=== PATIENT | male | born 1965 | race Caucasian/White ===

== ENCOUNTER → 2017-02-18 | Outpatient (CLI) | payer OTHER ==
[2017-02-18 08:09] LABS: MEAN CORPUSCULAR HEMOGLOBIN 30.1 pg (27.0-33.0); MEAN CORPUSCULAR HGB CONC 32.9 g/dl (32.0-36.5); MEAN CORPUSCULAR VOLUME 91.4 fl (80.0-96.0); RED CELL DISTRIBUTION WIDTH 12.4 % (11.5-14.5); WHITE BLOOD COUNT 6.6 K/mm3 (4.0-10.0)
[2017-02-18 08:30] LABS: ALBUMIN 3.6 GM/DL (3.2-5.2); ALBUMIN/GLOBULIN RATIO 1.16 (1.00-1.93); ALKALINE PHOSPHATASE 109 U/L (45-117); ALT/SGPT 29 U/L (12-78); ANION GAP 6 MEQ/L (8-16); AST/SGOT 17 U/L (15-37); BILIRUBIN,TOTAL 0.4 MG/DL (0.2-1.0); BLOOD UREA NITROGEN 18 MG/DL (7-18); CALCIUM LEVEL 8.6 MG/DL (8.5-10.1); CARBON DIOXIDE LEVEL 30 MEQ/L (21-32); CHLORIDE LEVEL 108 MEQ/L (98-107); CHOLESTEROL LEVEL 135 MG/DL (<200); GLOMERULAR FILTRATION RATE > 60.0 (>56); GLUCOSE, FASTING 83 MG/DL (70-105); POTASSIUM SERUM 4.9 MEQ/L (3.5-5.1); SODIUM LEVEL 144 MEQ/L (136-145); TOTAL PROTEIN 6.7 GM/DL (6.4-8.2); TRIGLYCERIDES LEVEL 98 MG/DL (<150)
--- NOTE | 2017-02-18 10:06 | REP ---
MRI lumbar spine without contrast: History: Low back pain. Comparison MRI lumbar spine study is from April 01, 2015. Technique: Sagittal and axial T1 and T2-weighted scans are acquired in the usual fashion with and without fat saturation. Sequences include spin echo, turbo spin-echo, and STIR imaging sequences. MRI findings: There is straightening of the normal lumbar lordosis. Vertebral body heights are preserved. Cortical and medullary bone signal intensity are normal. There is fairly advanced narrowing of the L4-5 disc with decreased disc space signal intensity consistent with degenerative disc disease. There are some reactive marrow changes at L4-5. Degenerative disc changes are also noted at L3-4 and to some degree at L5-S1. The conus medullaris terminates at T12-L1 at the top of the imaging field of view. Normal caliber aorta is seen. No extra spinal abnormality is observed. Axial and sagittal images at L1-2 and L2-3 are unremarkable. At L3-4, there is diffuse disc bulging. There is a right foraminal disc protrusion at L3-L4 producing neural foraminal encroachment. There is nerve root compression in the foramen. There is left foraminal disc bulging. No neural foraminal encroachment is seen. At L3-4, there is mild central canal stenosis. Ligamentum flavum and facet hypertrophy contribute to this along with diffuse disc bulging. The mid sagittal AP dimension of the thecal sac here is 10 mm. At L4-L5, there is a right paracentral disc protrusion with caudal extension indenting the thecal sac. The diffuse bulging of the remainder of the disc margin as well as developmentally short pedicles and ligamentum flavum and facet hypertrophy produce moderate central canal stenosis at L4-5. Neural foramina appear adequate. At L5-S1, there is no visible disc herniation. Mild facet hypertrophy is noted. No other abnormality. Impression: Degenerative spondylosis changes with central canal stenosis at L4-5 and to a lesser extent L3-4. Right paracentral disc protrusion with caudal extension at L4-5. Right lateral disc protrusion at L3-4 with neural foraminal encroachment. Signed by Alessio Ramires MD 02/18/2017 12:14 P
--- NOTE | 2017-02-18 10:08 | REP ---
MRI cervical spine without contrast: History: Neck pain. History of cervical fusion approximately 5 years earlier. Comparison MRI cervical spine October 12, 2009. Technique: Sagittal and axial T1 and T2-weighted scans are acquired in the usual fashion with and without fat saturation. Sequences include spin echo, turbo spin-echo, and STIR imaging sequences. MRI findings: There is mild straightening of the normal cervical lordosis. The patient is status post ventral discectomy and fusion plating across the C5 through C7 disc spaces with magnetic field susceptibility artifact emanating from the fusion plate hardware ventrally. There is no evidence of recurrent or residual disc protrusion at the fused levels. No cord compression is seen here or elsewhere. Cervical cord is normal in coarse, caliber and signal intensity on T1 and T2-weighted scans. Craniocervical junction is unremarkable. Axial and sagittal images at C2-3 demonstrate minimal left sided C2-3 disc bulging. At C3-4, there is left-sided uncovertebral spurring and neural foraminal encroachment with associated disc bulging. This is slightly more prominent than on the 2010 study. Canal size is developmentally borderline unchanged. At C4-5, there is a very small central disc protrusion effacing the ventral subarachnoid space but not compressing the cord. This is a new finding. Borderline canal size again seen. At C7-T1, there is a small focal disc protrusion with associated spurring right posterior disc margin. This is essentially unchanged. Impression: Status post ventral discectomy and fusion C5-C7. No recurrent disc disease at these levels. Right posterior disc bulge and spurring at C7-T1. Left sided uncovertebral spurring and neural foraminal narrowing at C3-4. Signed by Alessio Ramires MD 02/18/2017 12:14 P
== END ==
LOC: M LAB 07:02
PROVIDERS: ATTEND Family Medicine
DX: M54.5 Low back pain (principal); M54.2 Cervicalgia; M51.87 Other intervertebral disc disorders, lumbosacral region; M50.20 Other cervical disc displacement, unspecified cervical region; M48.06 Spinal stenosis, lumbar region

== ENCOUNTER 2017-04-20 09:22 | Emergency (ER) | payer OTHER ==
[~2017-04-20] VITALS: Ht 180.3 cm; Wt 84.1 kg
[2017-04-20] MEDS ORDERED: LISI-538 PO (09:37)
[2017-04-20] MEDS ORDERED: OMEP20CA3 PO (09:37)
[2017-04-20] MEDS ORDERED: ONDANSETRON 4MG/2ML VIAL (J2405) IV ONE (10:15)
[2017-04-20] MEDS ORDERED: NS 1,000 ML IV ONE ×2 (10:15→11:15)
[2017-04-20 10:29] LABS: BASO % 0.2 % (0.0-1.0); EOS # 0.1 10^3/uL (0.0-0.50); EOS % 0.3 % (0.0-3.0); IMMATURE GRANULOCYTE % 0.3 % (0-0); LYMPH # 2.1 10^3/uL (1.5-4.5); LYMPH % 12.9 % (24.0-44.0); MEAN CORPUSCULAR HEMOGLOBIN 29.6 pg (27.0-33.0); MEAN CORPUSCULAR HGB CONC 35.1 g/dl (32.0-36.5); MEAN CORPUSCULAR VOLUME 84.5 fl (80.0-96.0); MONO # 1.5 10^3/uL (0.0-0.8); MONO % 9.1 % (0.0-5.0); NEUTROPHILS # 12.5 10^3/uL (1.8-7.7); NEUTROPHILS % 77.2 % (36.0-66.0); PLATELET COUNT, AUTOMATED 544 10^3/uL (150-450); WHITE BLOOD COUNT 16.1 10^3/uL (4.0-10.0)
[2017-04-20 11:05] LABS: ALBUMIN 4.2 GM/DL (3.2-5.2); ALKALINE PHOSPHATASE 116 U/L (45-117); ALT/SGPT 22 U/L (12-78); AMYLASE 52 U/L (25-115); ANION GAP 10 MEQ/L (8-16); AST/SGOT 11 U/L (7-37); BILIRUBIN,DIRECT 0.2 MG/DL (0.0-0.2); BILIRUBIN,TOTAL 0.9 MG/DL (0.2-1.0); BLOOD UREA NITROGEN 27 MG/DL (7-18); CALCIUM LEVEL 9.7 MG/DL (8.5-10.1); CARBON DIOXIDE LEVEL 26 MEQ/L (21-32); CHLORIDE LEVEL 101 MEQ/L (98-107); CREATININE FOR GFR 1.14 MG/DL (0.70-1.30); GLOMERULAR FILTRATION RATE > 60.0 (>56); GLUCOSE, FASTING 106 MG/DL (70-105); POTASSIUM SERUM 3.4 MEQ/L (3.5-5.1); SODIUM LEVEL 137 MEQ/L (136-145); TOTAL PROTEIN 8.4 GM/DL (6.4-8.2)
[2017-04-20] MEDS ORDERED: ZOFR4TAB3 PO (12:42)
[2017-04-20] MEDS ORDERED: POTASSIUM CHLORIDE 10 MEQ SR TABLET PO ONE (12:45)
[2017-04-20 13:02] VITALS: BP 158/87
== END 2017-04-20 13:05 | disposition home or self-care (01) ==
LOC: M ED 09:22
DX: R11.2 Nausea with vomiting, unspecified (principal); E86.0 Dehydration; E87.6 Hypokalemia; I10 Essential (primary) hypertension; M54.5 Low back pain; G89.29 Other chronic pain; K21.9 Gastro-esophageal reflux disease without esophagitis; F17.210 Nicotine dependence, cigarettes, uncomplicated; Z79.899 Other long term (current) drug therapy; Z88.0 Allergy status to penicillin
CPT/HCPCS: 36415; 80048; 80076; 81001; 82150; 82550; 83690; 85025; 96374; 99284; J2405

== ENCOUNTER 2017-09-30 18:28 | Emergency (ER) | payer OTHER ==
[2017-09-30] MEDS: NS 1,000 ML IV (19:39)
[2017-09-30] MEDS: ONDANSETRON 4MG/2ML VIAL (J2405) IV (19:39)
[2017-09-30] MEDS: MORPHINE 4 MG/ML 1ML VIAL/SYRINGE (J2270) IV (19:40)
[2017-09-30 19:44] LABS: BASO # 0.1 10^3/uL (0.0-0.2); BASO % 0.3 % (0.0-1.0); EOS % 0.3 % (0.0-3.0); HEMATOCRIT 47.2 % (42.0-52.0); HEMOGLOBIN 16.3 g/dl (13.5-17.5); IMMATURE GRANULOCYTE % 0.3 % (0-3.0); LYMPH # 1.3 10^3/uL (1.5-4.5); LYMPH % 8.7 % (24.0-44.0); MEAN CORPUSCULAR HEMOGLOBIN 29.9 pg (27.0-33.0); MEAN CORPUSCULAR HGB CONC 34.5 g/dl (32.0-36.5); MEAN CORPUSCULAR VOLUME 86.4 fl (80.0-96.0); MONO # 0.7 10^3/uL (0.0-0.8); MONO % 4.8 % (0.0-5.0); NEUTROPHILS # 12.3 10^3/uL (1.8-7.7); NEUTROPHILS % 85.6 % (36.0-66.0); PLATELET COUNT, AUTOMATED 446 10^3/uL (150-450); RED BLOOD COUNT 5.46 10^6/uL (4.30-6.10); RED CELL DISTRIBUTION WIDTH 12.4 % (11.5-14.5); WHITE BLOOD COUNT 14.4 10^3/uL (4.0-10.0)
[2017-09-30 20:07] LABS: LACTIC ACID SEPSIS PROTOCOL 1.8 MMOL/L (0.4-2.0)
[2017-09-30 20:10] LABS: ALBUMIN 4.2 GM/DL (3.2-5.2); ALBUMIN/GLOBULIN RATIO 1.17 (1.00-1.93); ALKALINE PHOSPHATASE 105 U/L (45-117); ALT/SGPT 18 U/L (12-78); ANION GAP 8 MEQ/L (8-16); AST/SGOT 11 U/L (7-37); BILIRUBIN,DIRECT 0.2 MG/DL (0.0-0.2); BILIRUBIN,TOTAL 0.8 MG/DL (0.2-1.0); BLOOD UREA NITROGEN 17 MG/DL (7-18); CALCIUM LEVEL 9.6 MG/DL (8.5-10.1); CARBON DIOXIDE LEVEL 26 MEQ/L (21-32); CHLORIDE LEVEL 110 MEQ/L (98-107); CPK CREATINE PHOSPHOKINASE 92 U/L (39-308); CREATININE FOR GFR 1.16 MG/DL (0.70-1.30); GLOMERULAR FILTRATION RATE > 60.0 (>56); GLUCOSE, FASTING 115 MG/DL (70-100); LIPASE 137 U/L (73-393); POTASSIUM SERUM 3.6 MEQ/L (3.5-5.1); SODIUM LEVEL 144 MEQ/L (136-145); TOTAL PROTEIN 7.8 GM/DL (6.4-8.2); TROPONIN I < 0.02 NG/ML (< 0.10)
[2017-09-30 20:11] LABS: CK-MB VALUE MASS < 1.0 NG/ML (<3.6); MB/CK RELATIVE INDEX 1.08 (< OR =4)
[2017-09-30] MEDS: METOCLOPRAMIDE INJ 10MG/2ML VIAL (J2765) IV (20:15)
[2017-09-30] MEDS ORDERED: ISOVUE-370 76% 100ML VIAL (Q9967) As Ordered ×2 (20:23→22:28)
[2017-09-30] MEDS: GASTROGRAFIN SOLUTION 30ML PO ×2 (20:30→21:00)
== END 2017-10-01 02:21 | disposition home or self-care (01) ==
LOC: M ED 10-01 02:21
DX: R10.9 Unspecified abdominal pain (principal); R11.2 Nausea with vomiting, unspecified; T62.91XA Toxic effect of unspecified noxious substance eaten as food, accidental (unintentional), initial encounter; Y92.89 Other specified places as the place of occurrence of the external cause; I10 Essential (primary) hypertension; K21.9 Gastro-esophageal reflux disease without esophagitis
CPT/HCPCS: J2270

== ENCOUNTER → 2018-04-21 | Outpatient (CLI) | payer OTHER ==
[2018-04-21 10:57] LABS: HEMATOCRIT 43.2 % (42.0-52.0); HEMOGLOBIN 14.2 g/dl (13.5-17.5); MEAN CORPUSCULAR HEMOGLOBIN 30.5 pg (27.0-33.0); MEAN CORPUSCULAR HGB CONC 32.9 g/dl (32.0-36.5); MEAN CORPUSCULAR VOLUME 92.9 fl (80.0-96.0); PLATELET COUNT, AUTOMATED 370 10^3/uL (150-450); RED BLOOD COUNT 4.65 10^6/uL (4.30-6.10); WHITE BLOOD COUNT 8.5 10^3/uL (4.0-10.0)
[2018-04-21 11:09] LABS: INR 0.99; PROTHROMBIN TIME 13.2 SECONDS (12.1-14.4)
[2018-04-21 11:29] LABS: ALBUMIN 3.9 GM/DL (3.2-5.2); ALBUMIN/GLOBULIN RATIO 1.34 (1.00-1.93); ALKALINE PHOSPHATASE 97 U/L (45-117); ALT/SGPT 21 U/L (12-78); ANION GAP 3 MEQ/L (8-16); AST/SGOT 13 U/L (7-37); BILIRUBIN,TOTAL 0.3 MG/DL (0.2-1.0); BLOOD UREA NITROGEN 21 MG/DL (7-18); CALCIUM LEVEL 8.9 MG/DL (8.5-10.1); CARBON DIOXIDE LEVEL 32 MEQ/L (21-32); CHLORIDE LEVEL 106 MEQ/L (98-107); CHOLESTEROL LEVEL 167 MG/DL (<200); CHOLESTEROL RISK RATIO 4.282 (<5); GLOMERULAR FILTRATION RATE > 60.0 (>56); GLUCOSE, FASTING 123 MG/DL (70-100); HDL CHOLESTEROL 39 MG/DL (>40); LDL CHOLESTEROL 113 MG/DL (<100); NON-HDL-C 128 MG/DL; POTASSIUM SERUM 4.1 MEQ/L (3.5-5.1); PROSTATIC SPECIFIC AG MONITOR 1.5 NG/ML (< 4.0); SODIUM LEVEL 141 MEQ/L (136-145); THYROID STIMULATING HORMONE 0.297 uIU/ML (0.358-3.740); TOTAL PROTEIN 6.8 GM/DL (6.4-8.2); TRIGLYCERIDES LEVEL 77 MG/DL (<150)
[2018-04-21 12:16] LABS: ESTIMATED AVERAGE GLUCOSE 120 MG/DL (60-110); HEMOGLOBIN A1c 5.8 %
== END ==
LOC: M LAB 10:02
DX: Z01.818 Encounter for other preprocedural examination (principal); I10 Essential (primary) hypertension
CPT/HCPCS: 71046

== ENCOUNTER 2018-07-21 09:25 | Emergency (ER) | payer OTHER ==
[~2018-07-21] VITALS: Ht 182.9 cm; Wt 77.3 kg
[~2018-07-21 09:25] MED LIST: LISI-538 PO; OMEP20CA3 PO; ZOFR4TAB14 PO
[2018-07-21] MEDS ORDERED: VARE1TA (09:42)
[2018-07-21] MEDS ORDERED: HYDR-3719 PO (09:42)
[2018-07-21] MEDS ORDERED: LIDOCAINE 5% (LIDODERM) PATCH TD ONE (10:00)
[2018-07-21] MEDS ORDERED: NORCO, ANEXSIA 5/325MG TABLET (HYDROcodone/ACETAMINOPHEN) PO ONE (10:00)
[2018-07-21 11:05] VITALS: BP 112/65
[2018-07-21] MEDS ORDERED: **NOTE PATIENT COMMENT** MISC XX SCH (21:00)
== END 2018-07-21 11:06 | disposition home or self-care (01) ==
LOC: M ED 09:25 → EDBD 09:25 → M ED 11:06
DX: M54.9 Dorsalgia, unspecified (principal); G89.29 Other chronic pain; F11.220 Opioid dependence with intoxication, uncomplicated; Z98.1 Arthrodesis status; F17.200 Nicotine dependence, unspecified, uncomplicated; Z88.0 Allergy status to penicillin; Z79.899 Other long term (current) drug therapy

== ENCOUNTER → 2020-09-27 | Outpatient (REF) | payer OTHER ==
[~2020-09-27] MED LIST changes: +HYDR-3719 PO; -LISI-538 PO; +LISI20TA33 PO; +OMEP1CAP73 PO; -OMEP20CA3 PO; +VARE1TA
== END ==
LOC: M LAB REF 11:14
PROVIDERS: ATTEND Surgery
DX: U07.1 COVID-19 (principal)

== ENCOUNTER → 2021-12-06 | Outpatient (REF) | LOC: M RAD 10:31 | PROVIDERS: ATTEND Internal Medicine | DX: M54.2 Cervicalgia (principal) ==

== ENCOUNTER 2022-08-07 22:06 | Emergency (ER) | payer OTHER ==
[~2022-08-07] VITALS: Ht 182.9 cm; Wt 114.3 kg
[2022-08-07 22:09] VITALS: BP 138/82
[2022-08-07] MEDS ORDERED: BOOSTRIX/ADACEL VACCINE (DIPHTH/PERTUSS/ACELL/TETANUS) 0.5ML SYR IM ONE (22:35)
[2022-08-07] MEDS ORDERED: LIDOCAINE 2% MDV 20ML VIAL SC ONE (22:35)
[2022-08-07] MEDS ORDERED: CEFD300C41 PO (23:47)
== END 2022-08-08 00:04 | disposition home or self-care (01) ==
LOC: M ED 22:06
DX: S02.2XXB Fracture of nasal bones, initial encounter for open fracture (principal); Y04.0XXA Assault by unarmed brawl or fight, initial encounter; Y92.149 Unspecified place in prison as the place of occurrence of the external cause; Y99.0 Civilian activity done for income or pay; I10 Essential (primary) hypertension; K21.9 Gastro-esophageal reflux disease without esophagitis; M54.50 Low back pain, unspecified; Z88.0 Allergy status to penicillin; Z79.899 Other long term (current) drug therapy; Z23 Encounter for immunization